=== PATIENT | female | born 1990 | race Caucasian/White ===

== ENCOUNTER 2017-03-26 21:30 | Inpatient (IN) | payer OTHER ==
[~2017-03-26] VITALS: Ht 172.7 cm; Wt 51.7 kg
[2017-03-27] VITALS (7 sets, daily range): BP systolic 109–132; BP diastolic 56–87
--- NOTE | 2017-03-27 01:20 | NUR ---
Pre admission assessment Patient is a 26 year old female, seen in intake, Alert and oriented x 4, no SOB, no noted physical complaints at present time. Discussed with patient admission policies of the unit. Patient is coherent and able to respond to questions appropriately. Patient is ambulatory with steady gait. Reports using Heroin, methamphetamine, Klonopin and xanax daily. Vital signs BP 132/87, P 105, R 18, SPO2 98% on RA. Patient reports NKA. PMH of seizures from Benzo withdrawal, also history of endocarditis with open heart surgery in December 2016. Urine for drug screen and HCG provided.
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
[2017-03-27] MEDS ORDERED: ONDANSETRON 4 MG/2 ML VIAL IM PRN (02:00)
[2017-03-27] MEDS ORDERED: MIRALAX 17 GM POWD.PACK PO PRN (02:00)
[2017-03-27] MEDS ORDERED: LOPERAMIDE HCL 2 MG CAPSULE PO PRN ×2 (02:00)
[2017-03-27] MEDS ORDERED: BUPRENORPHINE HCL 2 MG TAB.SUBL SL PRN (02:00)
[2017-03-27] MEDS ORDERED: diphenhydrAMINE 50 MG CAPSULE PO PRN (02:00)
[2017-03-27] MEDS ORDERED: ACETAMINOPHEN 325 MG TABLET PO PRN (02:00)
[2017-03-27] MEDS ORDERED: LORAZEPAM 2 MG/1 ML VIAL IM PRN (02:00)
[2017-03-27] MEDS ORDERED: DICYCLOMINE HCL 20 MG TABLET PO PRN (02:00)
[2017-03-27] MEDS ORDERED: HYDROXYZINE PAMOATE 25 MG CAPSULE PO PRN (02:00)
[2017-03-27] MEDS ORDERED: MAG HYDROX/AL HYDROX/SIMETH 30 ML LIQUID UDC PO PRN (02:00)
[2017-03-27] MEDS ORDERED: IBUPROFEN 400 MG TABLET PO PRN (02:00)
[2017-03-27] MEDS ORDERED: MAGNESIUM HYDROXIDE 30 ML LIQUID UDC PO PRN (02:00)
[2017-03-27] MEDS ORDERED: LORAZEPAM 1 MG TABLET PO PRN (02:00)
[2017-03-27 02:25] LABS: *AMPHETAMINE, URINE POSITIVE (NEGATIVE); *BARBITURATE, URINE POSITIVE (NEGATIVE); *CANNABINOID, URINE POSITIVE (NEGATIVE); *COCCAINE, URINE NEGATIVE (NEGATIVE); *OPIATE, URINE POSITIVE (NEGATIVE); *PHENCYCLIDINE SCREEN,URINE NEGATIVE (NEGATIVE)
[2017-03-27] MEDS ORDERED: METO25TA6 PO (02:50)
[2017-03-27 03:33] LABS: *URINE HCG, QUAL NEGATIVE (NEGATIVE)
[2017-03-27] MEDS: CLONIDINE HCL 0.1 MG TABLET PO PRN ×2 (03:46→17:21)
--- NOTE | 2017-03-27 03:46 | NUR ---
PRN MEDICATION Patient received PRN Zofran 4mg SL at 0346 for c/o nausea. Effect pending. Patient received PRN Ativan 1mg PO at 0347 for CIWA 14, benzo withdrawal symptoms. Effect pending. Patient received Clonidine 0.1 mg PO at 0348 for chills, diaphoresis, ans anxiety of a 5 out of 10 with effect pending.
[2017-03-27] MEDS: LORAZEPAM 1 MG TABLET PO PRN ×2 (03:47→09:54)
[2017-03-27] MEDS: ONDANSETRON ODT 4 MG TAB.RAPDIS SL PRN ×3 (03:48→19:50)
--- NOTE | 2017-03-27 03:48 | NUR ---
PRN Medication PRN motrin 400 mg PO given for c/o headache pain of 5/10. Effect pending.
[2017-03-27] MEDS ORDERED: IBUPROFEN 400 MG TABLET ONE (03:55)
[2017-03-27] MEDS ORDERED: LORAZEPAM 1 MG TABLET ONE (03:56)
[2017-03-27] MEDS ORDERED: CLONIDINE HCL 0.1 MG TABLET ONE (03:56)
[2017-03-27] MEDS ORDERED: ONDANSETRON ODT 4 MG TAB.RAPDIS ONE (03:56)
--- NOTE | 2017-03-27 04:16 | NUR ---
Reassessment of patient patient reassessed 30 minutes after zofran 4mg SL given for nausea. Patient denies any further feeling of nausea. Effectiveness noted.
--- NOTE | 2017-03-27 04:48 | NUR ---
Reassessment of patient Patient reassessed one hour after Ativan 1mg PO given for CIWA 14. Patient resting comfortably in bed eyes closed. BP 109/56, P 104, R 16. SPO2 98% on RA. CIWA deferred for sleep. Patient reassessed one hour after PRN clonidine 0.1 mg given for anxiety, chills, and diaphoresis. Patient resting comfortably in bed with eyes closed. No further complaints offered.
--- NOTE | 2017-03-27 04:48 | NUR ---
Reassessment of patient Patient reassessed one hour after PRN motrin given for c/o headache, No further headache pain noted. Motrin effective.
[2017-03-27] MEDS ORDERED: RIVA20TA PO (05:11)
[2017-03-27] MEDS ORDERED: QUET100T PO (05:12)
[2017-03-27] MEDS ORDERED: CLON2TAB PO (05:13)
--- NOTE | 2017-03-27 06:57 | NUR ---
End of Shift Patient is a 26 year old female admitted to [facility] on 03-27-17 at 0125 for opiate and benzo detox. She is on PRN Ativan and Subutex for benzo and opiate withdrawal symptoms. She is a full code, on a regular diet with NKA. Patient has PMH of endocarditis resulting in open heart surgery in December 2016. Patient is on Xarelto and Metoprolol at home for this. Patient brought metoprolol with her from home but no other medications. Patient reports a history of multiple detox and rehab attempts as well as >20 seizures related to Benzo withdrawal. Patient also with history of Bipolar disorder with one past suicide attempt at approximately age 19 in context of a several day crack binge, no sleep, and a manic episode. Denies any other suicide attempts. Denies any history of self injurious behavior. Patient denies current SI or HI. Suicide lethality assessment completed with score of 4. Patient also reports taking Klonopin prescribed to her by her PCP States dose is 2mg PO TID states she ran out a few days ago. Patient also reports she is on Seroquel 100 mg PO QHS for insomnia. Patient Vital signs 125/74, P 107, T 98.3, R 18, SPO2 98% on RA. CIWA 14, COWS 9. Patient received PRN Ativan 1mg, Clonidine 0.1mg, Zofran 4mg SL, and Motrin 400 mg PRN with effect noted. Patient vital signs one hour after PRN 0448: BP 109/56, P 104, R 16, T 97.9, SPO2 98% on RA. Patient asleep CIWA/COWS deferred. Swab for MRSA nares completed as patient was in [facility] for approximately 2 days approximately 2 weeks ago. Patient slept total of 3 hours, Total intake 200 ml, Output 2 voids. Patient safety measures in place 2 padded side rails up, bed locked in lowest position, call light within reach. Report given to AM nurse
[2017-03-27 07:22] LABS: ALANINE AMINOTRANSFERASE 19 U/L (14-59); ALKALINE PHOSPHATASE 71 U/L (50-136); AMYLASE 31 U/L (25-115); ASPARTATE AMINOTRANSFERASE 30 U/L (15-37); BILIRUBIN,TOTAL 0.6 mg/dL (0.2-1.0); CARBON DIOXIDE 24 mmol/L (21-32); CHLORIDE 100 mmol/L (98-107); CREATININE 0.5 mg/dL (0.6-1.3); GLUCOSE 75 mg/dL (74-106); MAGNESIUM 1.9 mg/dL (1.8-2.4); POTASSIUM 3.7 mmol/L (3.5-5.1); TOTAL PROTEIN, SERUM 7.1 g/dL (6.4-8.2); UREA NITROGEN, BLOOD 11 mg/dL (7-18)
--- NOTE | 2017-03-27 07:30 | NUR ---
start of shift note: received pt from hourly shift nurse, [facility]benzo/meth withdrawal/dependence. pt's last ciwa was 14 and cows 9. pt received multiple doses of prn's in the night. will asses pt and medicate accordingly. will monitor pt for any changes. will communicate to MD pt's needs. and manage pt's withdrawal symptoms.
[2017-03-27 07:39] LABS: LIPASE 66 U/L (73-393)
[2017-03-27 08:20] LABS: THYROID STIMULATING HORMONE 0.142 mIU/mL (0.358-3.740)
[2017-03-27] MEDS: MULTIVITAMINS,THERAPEUTIC TABLET PO SCH (09:00)
[2017-03-27 09:16] LABS: ETHANOL < 3 MG/DL (0-0)
[2017-03-27] MEDS: METHOCARBAMOL 750 MG TABLET PO PRN ×2 (09:54→21:13)
--- NOTE | 2017-03-27 09:54 | NUR ---
PRN ADMINISTRATION: PT WITH CIWA OF 12 AND COWS 14, ROBAXIN , SUBUTEX, ZOFRAN, AND ATIVAN WAS ADMINISTERED TO ASSIST WITH WITHDRAWAL SYMPTOMS. PT WITH COMPLAINTS OF CHILLS, NAUSEA, BODY ACHES.
--- NOTE | 2017-03-27 10:30 | NUR ---
PRN RE-ASSESSMENT: PT IS RESTING IN BED, NO PAIN OR DISCOMFORT NOTED PAIN LEVEL 2/10. PT WILL SPEAK WITH MD REGARDING PLAN OF CARE
[2017-03-27] MEDS ORDERED: IBUPROFEN 600 MG TABLET PO PRN (13:00)
[2017-03-27] MEDS: BUPRENORPHINE HCL 2 MG TAB.SUBL SL SCH ×3 (13:42→21:13)
[2017-03-27] MEDS: DIAZEPAM 10 MG TABLET PO SCH ×3 (13:42→21:13)
--- NOTE | 2017-03-27 17:21 | NUR ---
PRN ADMINISTRATION: PT WITH INCREASED HR OF 124, PRN CLONIDINE ADMINISTERED.
[2017-03-27] MEDS ORDERED: QUETIAPINE FUMARATE 100 MG TABLET PO SCH (18:00)
[2017-03-27] MEDS ORDERED: RIVAROXABAN 10 MG TABLET PO SCH (18:00)
--- NOTE | 2017-03-27 18:00 | NUR ---
PRN RE-ASSESSMENT: PT'S HR IS 110. PT IS RESTING WITHOUT DISCOMFORT OR PAIN
--- NOTE | 2017-03-27 19:20 | NUR ---
END OF SHIFT NOTE: PT IS IN STABLE CONDITION AT THIS TIME, [facility]/BENZO/METH WITHDRAWAL/DEPENDENCE . PT WAS STARTED ON A VALIUM AND SUBUTEX TAPER. PT WITHOUT A/R TO MEDICATION. PT'S LAST COWS 8 AND CIWA 5. WILL ENDORSE PT TO PAYABLE REPRESENTATIVE NURSE.
--- NOTE | 2017-03-27 19:30 | NUR ---
start of shift Patient is a 26 year old female admitted to [facility] on 03-27-17 at 0125 for opiate and benzo detox. She is on a 5 day subutex and 5 day Valium taper. She is a full code, on a regular diet with NKA. Patient has PMH of endocarditis resulting in open heart surgery in December 2016. Patient reports a history of multiple detox and rehab attempts as well as >20 seizures related to Benzo withdrawal. Patient also with history of Bipolar disorder. Patient denies current SI or HI. Last CIWA 5, COWS 8. Patient safety measures in place 2 padded side rails up, bed locked in lowest position, call light within reach. Report received from AM nurse.
--- NOTE | 2017-03-27 19:50 | NUR ---
PRN medication Zofran 4mg SL administered at 1950 for c/o nausea. Effect pending
--- NOTE | 2017-03-27 20:20 | NUR ---
Reassessment of patient Patient reassessed 30 minutes after administration of Zofran 4mg SL for c/o nausea. Good effect noted.
[2017-03-27] MEDS ORDERED: PATIENT MAY USE OWN MED- MD OK PO SCH (21:00)
[2017-03-27] MEDS: GABAPENTIN 300 MG CAPSULE PO SCH (21:12)
[2017-03-27] MEDS: QUETIAPINE FUMARATE 100 MG TABLET PO SCH (21:13)
--- NOTE | 2017-03-27 21:13 | NUR ---
PRN Medication Patient received Robaxin 750 mg PO at 2112 for C/O muscle aches. Effect pending.
--- NOTE | 2017-03-27 22:13 | NUR ---
Reassessment of patient Patient reassessed one hour after Patient received Robaxin 750 mg PO for C/O muscle aches. Effectiveness noted. No further complaints of pain.
--- NOTE | 2017-03-28 | NUR ---
COWS/CIWA deferred/VS refused Patient refused 0000 vital signs. COWS/CIWA deferred due to sleep
--- NOTE | 2017-03-28 01:19 | NUR ---
PRN CLONIDINE REASSESSMENT Pt reports improvement in sweats, irritability, anxiety, and chills. Safety measures in place. Call light within reach. Will continue to monitor. Addendum: 03/28/17 at 1558 by CAPRICE DIA RN TIME [id number] NOT [id number]
--- NOTE | 2017-03-28 04:00 | NUR ---
COWS/CIWA deferred/VS refused Patient refused 0400 vital signs. COWS/CIWA deferred due to sleep
--- NOTE | 2017-03-28 06:51 | NUR ---
End of Shift Patient is a 26 year old female admitted to [facility] on 03-27-17 for opiate and benzo detox. She is on a 5 day Valium and 5 day Subutex taper for benzo and opiate detox. She is a full code, on a regular diet with NKA. Patient has PMH of endocarditis and Bipolar disorder. Patient also with history of multiple benzo withdrawal seizures. Patient denies current SI or HI. Patient Vital signs at 1999 BP 113/78, P 88, R 18, SPO2 99% on RA, T 97.9. COWS 10 CIWA 10. Patient received PRN Zofran 4mg SL for nausea with good effect, Patient received Robaxin 750 mg PO for body aches/muscle pain with good effect. Patient Vital signs at 0000 and 0400 refused, COWS and CIWA deferred for sleep. Patient slept total of 6 hours, Total intake 600 ml, Output 2 voids. Patient safety measures in place 2 padded side rails up, bed locked in lowest position, call light within reach. Patient with intermittent PCD at end of bed for VTE score of 2. Report given to AM nurse
--- NOTE | 2017-03-28 07:30 | NUR ---
START OF SHIFT Pt is a 26 y/o female admitted on 03/27/17 for benzo, opiate, and meth dependence. Pt was dependent on 3 grams of heroin, 14 mg of Xanax, 6 mg of Klonopin, and 0.5 gram of meth for the past 3 months at this rate. Pt is full code, NKA, regular diet, fall/seizure precautions. Pt reports > 20 seizure hx r/t withdrawal from benzos. Pt reports PMH of endocarditis with open heart surgery in 12/19, bipolar disorder, and anxiety. Pt started on a 5 day Subutex and 5 day Ativan taper on 03/27/17, tolerating well. PRN Zofran and Robaxin administered during mold shifter. Last COW 10 and CIWA 10 during mold shifter. Slept 6 hours. Pt is on VTE prophalaxis. Upon assessment, pt was sleeping in bed. Pt presents with nausea, anxiety, sweats, chills, body aches, stuffy nose, mild tremors. Respirations 16, even and unlabored. Denies V/D. Denies chest pain or SOB. Medications due. Safety measures in place. Call light within reach. Will continue to monitor.
[2017-03-28 08:00] VITALS: BP 99/65
[2017-03-28] MEDS ORDERED: TUBERCULIN,PURIF.PROT.DERIV. 5 TU/0.1 ML TEST ID ONE (09:00)
[2017-03-28] MEDS: ONDANSETRON ODT 4 MG TAB.RAPDIS SL PRN (09:37)
--- NOTE | 2017-03-28 09:37 | NUR ---
PRN ZOFRAN AND ROBAXIN ADMINISTRATION Pt complained of nausea and body aches 01/12. Denies any episodes of vomiting this morning. Safety measures in place. Call light within reach. Will continue monitor.
[2017-03-28] MEDS: METHOCARBAMOL 750 MG TABLET PO PRN ×2 (09:38→21:01)
[2017-03-28] MEDS: DIAZEPAM 10 MG TABLET PO SCH ×3 (09:38→20:28)
[2017-03-28] MEDS: BUPRENORPHINE HCL 2 MG TAB.SUBL SL SCH ×3 (09:38→20:28)
[2017-03-28] MEDS: METOPROLOL SUCCINATE XL 50 MG TAB.SR.24H PO SCH (09:39)
[2017-03-28] MEDS: GABAPENTIN 300 MG CAPSULE PO SCH ×3 (09:39→20:28)
[2017-03-28] MEDS: MULTIVITAMINS,THERAPEUTIC TABLET PO SCH (09:39)
--- NOTE | 2017-03-28 10:07 | NUR ---
PRN ZOFRAN REASSESSMENT Pt reports improvement in nausea. No episodes of vomiting. Safety measures in place. Call light within reach. Will continue to monitor.
--- NOTE | 2017-03-28 10:37 | NUR ---
CLEMENT ARREOLA REASSESSMENT Pt is laying in bed watching TV. Pt reports improvement in body aches 07/15. Safety measures in place. Call light within reach. Will continue to monitor.
[2017-03-28 12:00] VITALS: BP 118/65
[2017-03-28] MEDS: CLONIDINE HCL 0.1 MG TABLET PO PRN (12:19)
--- NOTE | 2017-03-28 12:19 | NUR ---
PRN CLONIDINE ADMINISTRATION Pt presents with chills, irritability, sweats, and moderate anxiety. PRN 0.1 mg Clonidine administered. Safety measures in place. Call light within reach. Will continue to monitor.
--- NOTE | 2017-03-28 13:45 | NUR ---
Activity Group Note: Client attended activity group, but refused to participate in "painting" activity. Intervention goal was to increase task focus and leisure skills. Client sat in a chair on other side of room with a male client but did not interact with the group. She appeared to have a depressed mood with flat affect. When prompted, client refused to participate in activity. Client left 30 minutes early. livestock farm workers will continue to encourage participation.
[2017-03-28 16:00] VITALS: BP 94/58
[2017-03-28 18:48] LABS: *BILIRUBIN,URIN NEGATIVE (NEGATIVE); *BLOOD, URINE NEGATIVE (NEGATIVE); *COLOR,URINE YELLOW (YELLOW); *KETONES,URINE NEGATIVE (NEGATIVE); *PROTEIN,URINE NEGATIVE (NEGATIVE); *UROBILINOGEN,URINE 0.2 E.U./dl (NORMAL); LEUKOCYTE ESTERASE ,URINE TRACE (NEGATIVE); NITRITE, URINE POSITIVE (NEGATIVE); PH,URINE 5.5 (5.0-8.0); UGLUCOSE NEGATIVE (NEGATIVE)
--- NOTE | 2017-03-28 19:25 | NUR ---
END OF SHIFT Pt is a 26 y/o female admitted on 03/27/17 for benzo, opiate, and meth dependence. Pt was dependent on 3 grams of heroin, 14 mg of Xanax, 6 mg of Klonopin, and 0.5 gram of meth for the past 3 months at this rate. Pt is full code, NKA, regular diet, fall/seizure precautions. Pt reports > 20 seizure hx r/t withdrawal from benzos. Pt reports PMH of endocarditis with open heart surgery in 12/19, bipolar disorder, and anxiety. Pt is on VTE prophylaxis. Pt reports that she was positive for BV prior to admission and "did not finish course of Flagyl" and states her BV symptoms are coming back (discharge with odor and discomfort). Urinalysis ordered and sent to lab. Pt started on a 5 day Subutex and 5 day Ativan taper on 03/27/17, tolerating well. Pt presented with nausea, anxiety, sweats, chills, generalized body aches (especially in back and neck), stuffy nose, mild tremors. Scheduled medications and PRN Zofran, Robaxin, and Clonidine administered, effective in S/S of withdrawal AEB COW 8, CIWA 10 lowered to COW 8 CIWA 5 during shift and pt verbalized overall improvement in S/S. Pt ate most of her meals despite verbalizing low appetite and intermittent nausea. Pt did not participate in most groups/activities. Intake 2000 ml, void x 2, stool x 0. Safety measures in place. Call light within reach. Pt needs have been met. Endorsed to slot shift manager nurse.
--- NOTE | 2017-03-28 19:30 | NUR ---
START OF SHIFT Pt is a 26 y/o female admitted on 03/27/17 for benzo, opiate, and meth dependency. Pt is full code, NKA, regular diet, on fall/seizure precautions. Pt has PMH of endocarditis with open heart surgery in 12/19, bipolar disorder, and anxiety. Pt is on VTE prophylaxis. Per report,Pt stated that she was positive for BV prior to admission and "did not finish course of Flagyl" and states her BV symptoms are coming back (discharge with odor and discomfort). Urinalysis ordered and sent to lab.Awaiting results. Pt continues on a 5 day Subutex and 5 day Ativan taper and is tolerating well.Last COWS 8, CIWA 5. Pt received resting in bed in her room.No s/s of acute distress noted.All safety measures in place per hospital policy,call light within reach.Will continue to monitor.
[2017-03-28 19:43] LABS: *CLARITY,URINE CLOUDY (CLEAR)
[2017-03-28 19:48] LABS: RBC,URINE 0-3 /HPF (0-3)
[2017-03-28 19:49] LABS: BACTERIA,URINE MANY /HPF (NONE SEEN); SQUAMOUS EPITHELIAL CELL,UR MANY /HPF (NONE SEEN)
[2017-03-28] MEDS: QUETIAPINE FUMARATE 100 MG TABLET PO SCH (20:28)
[2017-03-28] MEDS: RIVAROXABAN 10 MG TABLET PO SCH (20:30)
--- NOTE | 2017-03-28 21:05 | NUR ---
PRN ROBAXIN GIVEN FOR C/O MUSCLE ACHES AND PAIN.WILL MONITOR.
--- NOTE | 2017-03-28 22:05 | NUR ---
PRN F/U PT VERBALIZES RELIEF FROM ACHES AND PAIN.STATES "FEELING BETTER".
--- NOTE | 2017-03-28 23:00 | NUR ---
PT NOTED TO HAVE AN ABNORMAL UA RESULT.DR HEWITT MADE AWARE.WILL START PT ON ATB TREATMENT IN THE MORNING FOR POSSIBLE UTI.
[2017-03-28 23:32] VITALS: BP 95/65
--- NOTE | 2017-03-29 | NUR ---
V/S refused;COWS/CIWA deferred. Patient refused 0000 vital signs. COWS/CIWA deferred due to sleep;breathing is even and non labored,no s/s of distress noted.
[2017-03-29 04:00] VITALS: BP 91/59
--- NOTE | 2017-03-29 04:00 | NUR ---
COWS/CIWA DEFERRED D/T PT BEING ASLEEP.BREATHING IS EVEN AND NON LABORED,NO S/S OF DISTRESS NOTED.
--- NOTE | 2017-03-29 06:42 | NUR ---
END OF SHIFT Pt is a 26 y/o female admitted on 03/27/17 for benzo, opiate, and meth dependency. Pt is full code, NKA, regular diet, on fall/seizure precautions. Pt has PMH of endocarditis with open heart surgery in 12/19, bipolar disorder, and anxiety. Pt is on VTE prophylaxis.UA report is positive for bacteria,WBC elevated,shows s/s of UTI.Dr Leija made aware,will start Pt on antibiotics in the morning. Pt continues on a 5 day Subutex and 5 day Ativan taper and is tolerating well.Last COWS 5, CIWA 3. PRN Robaxin was given for myalgia and was effective. Pt slept 10 hours,fluid intake was 855 mls,voided x 2. All safety measures in place per hospital policy,call light within reach.Will continue to monitor.
--- NOTE | 2017-03-29 07:41 | NUR ---
START OF SHIFT NOTE: Received report from car shifter nurse. Pt is a 26 y/o female admitted on 03/27/17 for benzo, opiate, and meth dependency. Pt is on a 5 day Ativan and 5 day Subutex taper. Tolerating well. Pt is alert and oriented X4. Color good, skin warm and dry. Respirations even and unlabored. Resting in bed. Safety precautions observed. Call light within reach. Will continue to monitor.
[2017-03-29 08:41] VITALS: BP 99/60
[2017-03-29] MEDS ORDERED: BUPRENORPHINE HCL 2 MG TAB.SUBL SL SCH (09:00)
--- NOTE | 2017-03-29 09:00 | NUR ---
VSS COWS 6 CIWA 6 c/o anxiety, sweating and body aches
[2017-03-29] MEDS: GABAPENTIN 300 MG CAPSULE PO SCH (09:01)
[2017-03-29] MEDS: METRONIDAZOLE 500 MG TABLET PO SCH ×2 (09:01→20:15)
[2017-03-29] MEDS: DIAZEPAM 5 MG TABLET PO SCH ×4 (09:01→20:16)
[2017-03-29] MEDS: MULTIVITAMINS,THERAPEUTIC TABLET PO SCH (09:01)
[2017-03-29] MEDS: METOPROLOL SUCCINATE XL 50 MG TAB.SR.24H PO SCH (09:02)
[2017-03-29] MEDS: CLONIDINE HCL 0.1 MG TABLET PO PRN ×2 (12:24→21:58)
[2017-03-29] MEDS: METHOCARBAMOL 750 MG TABLET PO PRN (12:24)
--- NOTE | 2017-03-29 12:29 | NUR ---
VSS CIWA 6 c/o body aches and anxiety. Robaxin 750mg po prn and Clonidine 0.1mg prn given
[2017-03-29 12:31] VITALS: BP 104/68
--- NOTE | 2017-03-29 13:30 | NUR ---
Pt states feels improved after Robaxin and Clonidine prn
--- NOTE | 2017-03-29 14:19 | NUR ---
Therapist prompted client to attend group today. CLient agreed to come to group to meet with others.
[2017-03-29] MEDS: BUPRENORPHINE HCL 2 MG TAB.SUBL SL SCH ×2 (14:23→20:17)
[2017-03-29] MEDS: GABAPENTIN 400 MG CAPSULE PO SCH ×2 (14:23→20:16)
[2017-03-29] MEDS: BACLOFEN 10 MG TABLET PO SCH ×2 (14:23→20:16)
--- NOTE | 2017-03-29 14:28 | NUR ---
CIWA 6 still c/o anxiety and muscle aches.
--- NOTE | 2017-03-29 17:00 | NUR ---
VSS CIWA 8 c/o body aches, anxiety and sweating
[2017-03-29 17:48] VITALS: BP 104/68
--- NOTE | 2017-03-29 18:41 | NUR ---
END OF SHIFT NOTE: Report given to shift supervisor rn nurse. Pt is a 26 y/o female admitted on 03/27/17 for benzo, opiate, and meth dependency. Pt is on a 5 day Ativan and 5 day Subutex taper. Tolerating well. Pt is alert and oriented X4. Color good, skin warm and dry. Respirations even and unlabored. Vital signs have remained stable throughout shift. Robaxin 750mg po prn and Clonidine 0.1mg prn given @ 1230. Last CIWA 8 @ 1700. Resting in bed. Safety precautions observed. Call light within reach.
--- NOTE | 2017-03-29 19:45 | NUR ---
START OF SHIFT Received report from day shift nurse. Pt is lying in bed resting. She is a 26 yo female admitted to [facility] on 03/27 for BZD and Opiate dependence. She is A&O and ambulatory. NKA, is full code status, and on a regular diet. PMH if endocarditis with open heart surgery, seizures r/t withdrawal, bipolar, and anxiety. On admission she reported using heroin 3 grams per day, xanax 14mg per day, klonopin 6mg per day, and methamphetamine 0.5 grams per day. 5 day subutex and 5 day valium taper started on 03/27. She reports anxiety, sweating, chills, and neck ache. Tapers due tonight. Fall and seizure precautions in place. Bed is down with call light in reach.
[2017-03-29 20:00] VITALS: BP 109/64
[2017-03-29] MEDS: QUETIAPINE FUMARATE 100 MG TABLET PO SCH (20:16)
[2017-03-29] MEDS: RIVAROXABAN 10 MG TABLET PO SCH (20:18)
--- NOTE | 2017-03-29 22:00 | NUR ---
PRN Clonidine administration Pt reports sweating and is observed with flushed face. B/P 115/63 and HR 109. PRN Clonidine administered.
--- NOTE | 2017-03-29 23:00 | NUR ---
PRN Clonidine reassessment PRN Clonidine effective. Pt is lying in bed resting with eyes closed. Respirations even and unlabored. Safety measures in place.
[2017-03-30] VITALS: BP 98/56
--- NOTE | 2017-03-30 | NUR ---
0000 COWS and CIWA deferred COWS and CIWA ordered Q4HWA. Pt is lying in bed resting with eyes closed. Vital signs obtained. Safety measures in place.
--- NOTE | 2017-03-30 04:00 | NUR ---
0400 Vitals refused/COWS and CIWA deferred Pt refused to be woken for 0400 vitals. She is lying in bed resting with eyes closed. Respirations even and unlabored. COWS and CIWA ordered Q4HWA. Safety measures in place.
--- NOTE | 2017-03-30 07:27 | NUR ---
END OF SHIFT Report provided to day shift nurse. Pt is lying in bed resting. She is a 26 yo female admitted to [facility] on 03/27 for BZD and Opiate dependence. She is A&O and ambulatory. NKA, is full code status, and on a regular diet. PMH if endocarditis with open heart surgery, seizures r/t withdrawal, bipolar, and anxiety. On admission she reported using heroin 3 grams per day, xanax 14mg per day, klonopin 6mg per day, and methamphetamine 0.5 grams per day. 5 day subutex and 5 day valium taper started on 03/27. PRN Clonidine administered. Last COWS 5 and CIWA 5 before night medications. She drank 1095mL and slept for 7 hours. Fall and seizure precautions in place. Bed is down with call light in reach.
[2017-03-30 08:00] VITALS: BP 112/65
--- NOTE | 2017-03-30 08:00 | NUR ---
START OF SHIFT NOTE 26 yo female admitted to [facility] on 03/27 for BZD and Opiate dependence. She is A&O and ambulatory. NKA, is full code status, and on a regular diet. PMH if endocarditis with open heart surgery, seizures r/t withdrawal, bipolar, and anxiety. Fall and seizure precautions. Received report from night RN. Last CIWA 5 and COWS 5 at 8pm. PRN Clonidine given. Pt needs encouragement to increase fluid intake. 0800 nursing rounds Pt sleeping, respirations regular and unlabored. Side rails up x 2 and padded, bed in low position and locked. Call light within reach. Will continue to monitor.
[2017-03-30] MEDS: DIAZEPAM 5 MG TABLET PO SCH ×3 (09:00→20:42)
[2017-03-30] MEDS: METOPROLOL SUCCINATE XL 50 MG TAB.SR.24H PO SCH (09:00)
[2017-03-30] MEDS: GABAPENTIN 400 MG CAPSULE PO SCH (09:00)
[2017-03-30] MEDS: BACLOFEN 10 MG TABLET PO SCH (09:00)
[2017-03-30] MEDS: MULTIVITAMINS,THERAPEUTIC TABLET PO SCH (09:00)
[2017-03-30] MEDS: METRONIDAZOLE 500 MG TABLET PO SCH ×2 (09:00→20:43)
[2017-03-30] MEDS: BUPRENORPHINE HCL 2 MG TAB.SUBL SL SCH ×3 (09:22→20:42)
[2017-03-30 12:00] VITALS: BP 105/72
[2017-03-30] MEDS: CLONIDINE HCL 0.1 MG TABLET PO PRN (13:22)
--- NOTE | 2017-03-30 13:22 | NUR ---
PRN MEDICATION ADMINISTRATION Pt reporting anxiety, requesting Clonidine. PRN Clonidine given. Will reassess.
--- NOTE | 2017-03-30 14:22 | NUR ---
PRN MEDICATION REASSESSMENT Pt given PRN Clonidine for reported anxiety. At 1422 Pt reporting decreased anxiety.
--- NOTE | 2017-03-30 14:40 | NUR ---
therapist prompted client to attend group. Client declined to attend today.
[2017-03-30] MEDS: BACLOFEN 20 MG TABLET PO SCH ×2 (16:40→20:43)
[2017-03-30] MEDS: GABAPENTIN 300 MG CAPSULE PO SCH ×2 (16:41→20:42)
[2017-03-30 17:00] VITALS: BP 95/58
--- NOTE | 2017-03-30 19:00 | NUR ---
END OF SHIFT NOTE 26 yo female admitted to [facility] on 03/27 for BZD and Opiate dependence. She is A&O and ambulatory. NKA, is full code status, and on a regular diet. PMH if endocarditis with open heart surgery, seizures r/t withdrawal, bipolar, and anxiety. Fall and seizure precautions. Pt given Clonidine PRN at 1322 for anxiety. At 1422, Pt reported decrease in anxiety. Pt tolerating Subutex and Ativan taper as evidenced by COWS 5 and CIWA 3 at 0800. At 1200, COWS 6 and CIWA 3. 1600, COWS 5, and CIWA 4. Consuming 100 percent of meals. Fluid intake 2000 ml. Void x 4. Stool x 0. Report given to night RN. Side rails up x 2 and padded, bed in low position and locked. Call light within reach.
--- NOTE | 2017-03-30 19:00 | NUR ---
START OF SHIFT NOTE: Patient is 26 year old female admitted to [facility] on 03/27/2017 for medically supervised withdrawal from Benzodiazepines, Opioid, and Methamphetamine. Patient continue 5 Days Subutex and 5Day Valium Taper with tolerated well without ASE. Patient remains compliant with treatment, medications, and diet regime. Patient reports NKA, is on Full Code, Regular Diet, Fall and Seizures Precautions. Patient reports PMH: History of >20 Benzodiazepines withdrawal Seizures, Endocarditis with Open Heart Surgery on 12/19/2016; Anxiety, Bipolar Disorder, Recurrent VTE, Hepatitis C. Patient report recent hospitalization/Treatment History: [facility] for Open Heart Surgery r/t Endocarditis on 12/2016; "[facility]" - 01/2017, "[facility]". Upon endorsement patient is in her room alert and oriented x4, with stable gait. Speech is soft and clear. VSWNL. COWS 5, CIWA 5. Respirations unlabored and even. Lungs Sounds are clear thoroughly. Abdomen is soft, non-tender. Bowels Sounds presents in all x4 quadrants. Skin is intact, warm, and dry. Encouraged to fluids intake as tolerated. Encouraged to attending groups activities. All needs met. Safety measures in place: Call light within reach, bed locked, and in lowest position, padded bed rails up bilaterally. Patient endorsed by day shift nurse, report received.
[2017-03-30 20:00] VITALS: BP 108/60
[2017-03-30] MEDS: QUETIAPINE FUMARATE 100 MG TABLET PO SCH (20:43)
[2017-03-30] MEDS: RIVAROXABAN 10 MG TABLET PO SCH (20:45)
[2017-03-30] MEDS ORDERED: CLONIDINE HCL 0.1 MG TABLET PO SCH (21:00)
[2017-03-31] VITALS (7 sets, daily range): BP systolic 92–118; BP diastolic 55–71
--- NOTE | 2017-03-31 | NUR ---
VS REFUSED AND COWS/CIWA DEFERRED Patient refused to be woken up for 0000 VS. COWS/CIWA deferred d/t patient sleeping to assess while patient is awake. Safety measures on place by hospital policy: Call light within reach, bed in lowest position and locked, side rails up x2. Will continue to monitor closely.
--- NOTE | 2017-03-31 06:57 | NUR ---
END OF SHIFT NOTE: Patient is 26 year old female admitted to [facility] on 03/27/2017 for medically supervised withdrawal from Benzodiazepines, Opioid,and Methamphetamine. Patient continue 5 Days Subutex and 5Day Valium Taper with tolerated well without ASE. Patient remains compliant with treatment, medications, and diet regime. Patient reports NKA, is on Full Code, Regular Diet, Fall and Seizures Precautions. Patient reports PMH: History of >20 Benzodiazepines withdrawal Seizures, Endocarditis with Open Heart Surgery on 12/19/2016; Anxiety, Bipolar Disorder, Recurrent VTE, Hepatitis C. Patient report recent hospitalization/Treatment History: [facility] for Open Heart Surgery r/t Endocarditis on 12/2016; "[facility]" - 01/2017, "[facility]". DVT Pump per order. Patient denied HI/SI. Last COWS4, CIWA 3 @0400. COWS/CIWA's taken when patient's awake during night. Last VS @0400: T: 97.9, BP: 93/59, HR: 91, RR:16, RA O2Sat: 99%. Pain level: "0/10". Patient denies SI/HI. Respirations unlabored and even. Skin is intact, warm and dry to touch. No PRN Medications given last night. Patient slept 8 hours, intake 590 ml, voided x2. Encouraged fluids as tolerated. Encouraged to attend groups activities. All needs met. Safety measures on place. Call light within reach, bed in lowest position and locked, padded rails up bilaterally. Patient endorsed to day shift nurse. Report given.
--- NOTE | 2017-03-31 08:00 | NUR ---
START OF SHIFT NOTE 26 yo female admitted to [facility] on 03/27 for BZD and Opiate dependence. She is A&O and ambulatory. NKA, is full code status, and on a regular diet. PMH if endocarditis with open heart surgery, seizures r/t withdrawal, bipolar, and anxiety. Fall and seizure precautions. Received report from night RN. Last CIWA 3 and COWS 4 at 0400. No PRN medication given. Slept 8 hours. 0800 nursing rounds Pt sleeping, respirations regular and unlabored. Side rails up x 2 and padded, bed in low position and locked. Call light within reach. Will continue to monitor.
[2017-03-31] MEDS ORDERED: DIAZEPAM 5 MG TABLET PO SCH (09:00)
[2017-03-31] MEDS: BACLOFEN 20 MG TABLET PO SCH ×3 (09:33→20:51)
[2017-03-31] MEDS: METRONIDAZOLE 500 MG TABLET PO SCH ×2 (09:33→20:51)
[2017-03-31] MEDS: GABAPENTIN 300 MG CAPSULE PO SCH ×3 (09:33→20:51)
[2017-03-31] MEDS: MULTIVITAMINS,THERAPEUTIC TABLET PO SCH (09:33)
[2017-03-31] MEDS: BUPRENORPHINE HCL 2 MG TAB.SUBL SL SCH ×2 (09:35→20:51)
[2017-03-31] MEDS: METOPROLOL SUCCINATE XL 50 MG TAB.SR.24H PO SCH (09:35)
[2017-03-31] MEDS: ONDANSETRON ODT 4 MG TAB.RAPDIS SL PRN (09:55)
--- NOTE | 2017-03-31 09:55 | NUR ---
PRN MEDICATION ADMINISTRATION At 0955, pt reporting nausea. Given Zofran SL. Will reassess.
--- NOTE | 2017-03-31 10:25 | NUR ---
PRN MEDICATION REASSESSMENT At 1025, Pt reports resolution of nausea after Zofran SL at 0955.
[2017-03-31] MEDS: CLONIDINE HCL 0.1 MG TABLET PO PRN (12:50)
--- NOTE | 2017-03-31 12:50 | NUR ---
PRN MEDICATION ADMINISTRATION At 1250 Pt reports anxiety. Given Clonidine PRN. Will reassess.
--- NOTE | 2017-03-31 13:49 | NUR ---
PRN MEDICATION REASSESSMENT At 1250, Pt reported anxiety. Given Clonidine PRN. At 1349, RN to reassess, but pt now asleep. Will continue to assess.
[2017-03-31] MEDS: DIAZEPAM 5 MG TABLET PO SCH ×2 (14:30→20:51)
--- NOTE | 2017-03-31 19:27 | NUR ---
START OF SHIFT NOTE: Patient is 26 year old female admitted to [facility] on 03/27/2017 for medically supervised withdrawal from Benzodiazepines, Opioid, and Methamphetamine. Patient continue 5 Days Subutex and 5Day Valium Taper with tolerated well without ASE. Patient remains compliant with treatment, medications, and diet regime. Patient reports NKA, is on Full Code, Regular Diet, Fall and Seizures Precautions. Patient reports PMH: History of >20 Seizures r/t Benzodiazepines withdrawal, Open Heart Surgery on 12/19/2016r/t Endocarditis; Anxiety, Bipolar Disorder, Recurrent VTE, Hepatitis C. Patient report recent hospitalization/Treatment History: [facility] for Open Heart Surgery r/t Endocarditis on 12/2016; "[facility]" - 01/2017, "[facility]". Upon endorsement patient is in her room alert and oriented x4, with stable gait. Speech is soft and clear. VSWNL. COWS 4, CIWA 4. Respirations unlabored and even. Lungs Sounds are clear thoroughly. Abdomen is soft, non-tender. Bowels Sounds presents in all x4 quadrants. Skin is intact, warm, and dry. Encouraged to fluids intake as tolerated. Encouraged to attending groups activities. All needs met. Safety measures in place: Call light within reach, bed locked, and in lowest position, padded bed rails up bilaterally. Patient endorsed by day shift nurse, report received.
--- NOTE | 2017-03-31 19:27 | NUR ---
END OF SHIFT NOTE 26 yo female admitted to [facility] on 03/27 for BZD and Opiate dependence. She is A&O and ambulatory. NKA, is full code status, and on a regular diet. PMH if endocarditis with open heart surgery, seizures r/t withdrawal, bipolar, and anxiety. Fall and seizure precautions. Given PRN Zofran at 0955 with relief of nausea in 30 minutes at recheck. 1250 given Clonidine for anxiety with reported good effect at 1349. Last CIWA 4 and COWS 2. Report given to night RN. Side rails up x 2 and padded, bed in low position and locked. Call light within reach. Will continue to monitor.
[2017-03-31] MEDS: QUETIAPINE FUMARATE 100 MG TABLET PO SCH (20:50)
[2017-03-31] MEDS: RIVAROXABAN 10 MG TABLET PO SCH (20:52)
[2017-04-01 04:00] VITALS: BP 101/53
--- NOTE | 2017-04-01 07:06 | NUR ---
END OF SHIFT NOTE: Patient is 26 year old female admitted to [facility] on 03/27/2017 for medically supervised withdrawal from Benzodiazepines, Opioid, and Methamphetamine. Patient continue 5 Days Subutex and 5Day Valium Taper with tolerated well without ASE. Patient remains compliant with treatment, medications, and diet regime. Patient reports NKA, is on Full Code, Regular Diet, Fall and Seizures Precautions. Patient reports PMH: History of >20 Benzodiazepines withdrawal Seizures, Endocarditis with Open Heart Surgery on 12/19/2016; Anxiety, Bipolar Disorder, Recurrent VTE, Hepatitis C. Patient report recent hospitalization/Treatment History: [facility] for Open Heart Surgery r/t Endocarditis on 12/2016; "[facility]" - 01/2017, "[facility]". Patient denied HI/SI. Last COWS 5, CIWA 3 @0400. COWS/CIWA's taken when patient's awake during night. Last VS @0400: T: 97.6, BP: 101/53, HR: 97, RR:16, RA O2Sat: 99%. Pain level: "0/10". Patient denies SI/HI. Respirations unlabored and even. Skin is intact, warm and dry to touch. DVT Pump per order. No PRN Medications given last night. Patient slept 7 hours, intake 791 ml, voided x1, STOOL X1. Encouraged fluids as tolerated. Encouraged to attend groups activities. All needs met. Safety measures on place. Call light within reach, bed in lowest position and locked, padded rails up bilaterally. Patient endorsed to day shift nurse. Report given.
--- NOTE | 2017-04-01 07:30 | NUR ---
START OF SHIFT Pt is a 26 yr old female, A&Ox4. Pt was admitted on 03/27/17 for Benzo and Opiate dependence and is on 5 day Valium and 5 day Subutex taper as ordered. Medication amador well. Received report from night club manager nurse. No PRN's were given during the night. Last COWS score was 5 and CIWA score was 3 at 0400. Pt slept for 7 hrs. Pt is full code, regular diet and NKA. Pt is currently in bed resting with respirations even and unlabored. No acute distress noted. Skin is intact, warm and dry to touch. Pt is on fall and seizures precautions. Call light is within reach. Will continue to monitor.
[2017-04-01 08:00] VITALS: BP 108/62
[2017-04-01] MEDS ORDERED: DIAZEPAM 5 MG TABLET PO SCH (09:00)
[2017-04-01] MEDS ORDERED: BUPRENORPHINE HCL 2 MG TAB.SUBL SL SCH (09:00)
[2017-04-01] MEDS: MULTIVITAMINS,THERAPEUTIC TABLET PO SCH (09:18)
[2017-04-01] MEDS: GABAPENTIN 300 MG CAPSULE PO SCH ×3 (09:18→20:38)
[2017-04-01] MEDS: METRONIDAZOLE 500 MG TABLET PO SCH ×2 (09:18→20:38)
[2017-04-01] MEDS: BACLOFEN 20 MG TABLET PO SCH ×3 (09:18→20:38)
[2017-04-01] MEDS: METOPROLOL SUCCINATE XL 50 MG TAB.SR.24H PO SCH (09:19)
[2017-04-01 12:00] VITALS: BP 113/71
[2017-04-01] MEDS ORDERED: ONDA4VIA30 IM (13:33)
[2017-04-01] MEDS ORDERED: GABA-534 PO (13:33)
[2017-04-01] MEDS ORDERED: BACL20TA PO (13:33)
[2017-04-01] MEDS ORDERED: METR500T4 PO (13:33)
[2017-04-01] MEDS ORDERED: METH-406 PO (13:33)
[2017-04-01] MEDS ORDERED: CLON0.1T14 PO (13:33)
[2017-04-01] MEDS: CLONIDINE HCL 0.1 MG TABLET PO PRN ×2 (14:27→20:49)
--- NOTE | 2017-04-01 14:36 | NUR ---
PRN GIVEN Pt c/o increase anxiety. Clonidine 0.1mg PO PRN was given as ordered. Medication amador well. Will continue to monitor.
--- NOTE | 2017-04-01 15:36 | NUR ---
PRN RE-ASSESSMENT Clonidine PRN was effective. Pt denies any anxiety at this time. Pt was encouraged to attend group sessions. Will continue to monitor.
[2017-04-01 16:00] VITALS: BP 105/61
--- NOTE | 2017-04-01 19:06 | NUR ---
END OF SHIFT Pt is a 26 yr old female, A&Ox4. Pt was admitted on 03/27/17 for Benzo and Opiate dependence and is on 5 day Valium and 5 day Subutex taper as ordered. Medication amador well. Pt has been cooperative with medication regimen and plan of care. Pt received Clonidine PRN for anxiety. Medication was effective. Last COWS score was 4 and CIWA score was 3 at 1600. Pt has been c/o muscle aching. Pt remains on Baclofen as scheduled. Medication was effective. Pt is c/o anxiety but is able to cope with anxiety level. Pt was encouraged to attend group sessions. Pt was able to verbalize understanding and attended group sessions. Skin is intact, warm and dry to touch. No tremors seen or felt. Pt denies any n/v. Pt is to be discharged tomorrow to [facility]. Pt is full code, regular diet and NKA. Pt is on fall and seizures precautions. Call light is within reach.
--- NOTE | 2017-04-01 19:30 | NUR ---
START OF SHIFT Pt is a 26 y/o female admitted on 03/27/17 for benzo, opiate, and meth dependence. Pt was dependent on 3 grams of heroin, 14 mg of Xanax, 6 mg of Klonopin, and 0.5 gram of meth for the past 3 months at this rate. Pt is full code, NKA, regular diet, fall/seizure precautions. Pt reports > 20 seizure hx r/t withdrawal from benzos. Pt reports PMH of endocarditis with open heart surgery in 12/19, bipolar disorder, and anxiety. Pt started on a 5 day Subutex and 5 day Ativan taper on 03/27/17, taper finished and pt is scheduled to be d/c tomorrow. Pt is on VTE prophalaxis and is compliant with VTE pumps and anticoagulant medication. Upon assessment, pt presents with anxiety, occasional sense of panic, back and shoulder pain r/t withdrawal, restlessness, decreased appetite, anhedonia, fatigue, sweats, chills, agitation, body aches 6/10. Respirations 16, even and unlabored. Denies N/V/D. Denies chest pain or SOB. Medications due. Safety measures in place. Call light within reach. Will continue to monitor.
[2017-04-01 20:00] VITALS: BP 112/74
[2017-04-01] MEDS: RIVAROXABAN 10 MG TABLET PO SCH (20:37)
[2017-04-01] MEDS: METHOCARBAMOL 750 MG TABLET PO PRN (20:38)
[2017-04-01] MEDS: QUETIAPINE FUMARATE 100 MG TABLET PO SCH (20:38)
--- NOTE | 2017-04-01 20:38 | NUR ---
PRN ROBAXIN 750 MG AND CLONIDINE 0.1 MG ADMINISTRATION Pt reports generalized body aches and localized aches to back and shoulders r/t withdrawal 11/12, PRN Robaxin administered at 2037. Pt presents with sweats, chills, anxiety and agitation, PRN Clonidine administered at 2048. Safety measures in place. Reminded client to wear VTE pumps while in bed, client understood. Call light within reach. Will continue to monitor.
--- NOTE | 2017-04-01 21:38 | NUR ---
PRN CLONIDINE AND ROBAXIN REASSESSMENT Pt verbalized improvement in body aches 2/10 and improvement in anxiety, agitation, sweats, and chills. Safety measures in place. Call light within reach. Will continue to monitor.
--- NOTE | 2017-04-02 | NUR ---
VITALS REFUSED Pt is in bathroom and appears drowsy. Refused vitals. CIWA 3 COW 3. Respirations 16, even and unlabored. Safety measures in place. Call light within reach. Will continue to monitor.
--- NOTE | 2017-04-02 04:00 | NUR ---
VITALS REFUSED AND COW/CIWA DEFERRED Pt is laying in bed with eyes closed, COW/CIWA deferred, to be assessed when pt is fully awake per orders. Pt refused vitals. Respirations 16, even and unlabored. Safety measures in place. Call light within reach. Will continue to monitor.
--- NOTE | 2017-04-02 07:11 | NUR ---
END OF SHIFT Pt is a 26 y/o female admitted on 03/27/17 for benzo, opiate, and meth dependence. Pt was dependent on 3 grams of heroin, 14 mg of Xanax, 6 mg of Klonopin, and 0.5 gram of meth for the past 3 months at this rate. Pt is full code, NKA, regular diet, fall/seizure precautions. Pt reports > 20 seizure hx r/t withdrawal from benzos. Pt reports PMH of endocarditis with open heart surgery in 12/19, bipolar disorder, and anxiety. Pt started on a 5 day Subutex and 5 day Ativan taper on 03/27/17, taper finished and pt is scheduled to be d/c today. Pt is on VTE prophalaxis and is compliant with VTE pumps and anticoagulant medication. Pt presented with anxiety, occasional sense of panic, back and shoulder pain r/t withdrawal, restlessness, decreased appetite, anhedonia, fatigue, sweats, chills, agitation, body aches 11/12. Scheduled medications and PRN Robaxin and Clonidine administered, effective in S/S of withdrawal AEB COW 6 CIWA 5 lowered to COW 3 CIWA 3. Pt slept 8 hours. Intake 1300 ml, void x 3, stool x 0. Safety measures in place. Call light within reach. Pts needs have been met. Endorsed to day shift nurse.
--- NOTE | 2017-04-02 07:31 | NUR ---
Start of shift note; Received report from night nurse. Patient is a 26 year old female admitted on 03/27/17 for Opiate/Benzo/Meth dependence. Patient was placed on a 5 day Valium and 5 day Subutex taper, completed treatment without any adverse reactions. NKA, full code status, on a regular diet. Patient's last COWS is 3 and CIWA of 3 at 0400. Patient is medically cleared for discharge today. Patient is on fall and seizure precaution. Bed in lowest position, call light within reach. Will continue to monitor patient.
[2017-04-02 08:00] VITALS: BP 98/63
[2017-04-02] MEDS: METRONIDAZOLE 500 MG TABLET PO SCH (08:21)
[2017-04-02] MEDS: MULTIVITAMINS,THERAPEUTIC TABLET PO SCH (08:21)
[2017-04-02] MEDS: GABAPENTIN 300 MG CAPSULE PO SCH (08:21)
[2017-04-02] MEDS: BACLOFEN 20 MG TABLET PO SCH (08:21)
[2017-04-02 08:22] VITALS: BP 98/63
[2017-04-02] MEDS: METOPROLOL SUCCINATE XL 50 MG TAB.SR.24H PO SCH (08:22)
--- NOTE | 2017-04-02 09:45 | NUR ---
Discharge note; Patient is medically cleared for discharge today. All valuables, belongings, home medication and prescriptions were given to patient. Patient completed treatment without any adverse reactions. Patient left the hospital in a stable condition on 04/02/17 at 0945. Met all needs.
== END 2017-04-02 09:45 | disposition other institution (70) | DRG 895 ==
LOC: SRC 03-27 00:34
PROVIDERS: ADMIT Internal Medicine; ATTEND Internal Medicine
PROC: HZ2ZZZZ Detoxification Services for Substance Abuse Treatment (ICD-10-PCS; principal; 2017-03-27)
PROC: HZ41ZZZ Group Counseling for Substance Abuse Treatment, Behavioral (ICD-10-PCS; 2017-03-29)
PROC: HZ31ZZZ Individual Counseling for Substance Abuse Treatment, Behavioral (ICD-10-PCS; 2017-03-30)
DX: F13.232 Sedative, hypnotic or anxiolytic dependence with withdrawal with perceptual disturbance (principal); F31.60 Bipolar disorder, current episode mixed, unspecified; B19.20 Unspecified viral hepatitis C without hepatic coma; F11.23 Opioid dependence with withdrawal; B96.89 Other specified bacterial agents as the cause of diseases classified elsewhere; F17.210 Nicotine dependence, cigarettes, uncomplicated; F15.23 Other stimulant dependence with withdrawal; Z86.718 Personal history of other venous thrombosis and embolism; Z79.01 Long term (current) use of anticoagulants; Z81.8 Family history of other mental and behavioral disorders; Z81.1 Family history of alcohol abuse and dependence; Z79.899 Other long term (current) drug therapy; F41.9 Anxiety disorder, unspecified; G47.00 Insomnia, unspecified; Z59.1 Inadequate housing; N76.0 Acute vaginitis; E07.81 Sick-euthyroid syndrome; Z91.89 Other specified personal risk factors, not elsewhere classified
CPT/HCPCS: 36415; 70030-TC; 80307; 80324; 80345; 80346; 80349; 80361; 83690; 83735; 84443; 84703; 87806; A4663; G0480; Q0162